=== PATIENT | female | born 1995 | race Caucasian/White ===

== ENCOUNTER 2017-05-26 17:54 | Emergency (ER) | payer MEDICAID, OTHER ==
[~2017-05-26] VITALS: Ht 154.9 cm; Wt 59.0 kg
[~2017-05-26 17:54] MED LIST: KEFLEX500 MG ORAL; NKM; ZOFRAN4 MG ORAL
[2017-05-26 19:04] VITALS: BP 98/69
[2017-05-26 19:17] LABS: BASOPHILS % (AUTO) 0.6 % (0.0-2.0); LYMPHOCYTES % (AUTO) 9.8 % (20.0-45.0); MEAN CORPUSCULAR HEMOGLOBIN 31.6 PG (27.0-31.0); MEAN CORPUSCULAR HGB CONC 35.2 G/DL (32.0-36.0); MEAN CORPUSCULAR VOLUME 90 FL (80-99); MEAN PLATELET VOLUME 7.3 FL (6.5-10.1); MONOCYTES % (AUTO) 6.5 % (1.0-10.0); NEUTROPHILS % (AUTO) 83.1 % (45.0-75.0); PLATELET COUNT 262 K/UL (150-450); RED BLOOD COUNT 4.34 M/UL (4.20-5.40); RED CELL DISTRIBUTION WIDTH 11.7 % (11.6-14.8); WHITE BLOOD COUNT 17.9 K/UL (4.8-10.8)
[2017-05-26 19:27] LABS: ALANINE AMINOTRANSFERASE 7 U/L (3-33); ANION GAP 14 (5-15); ASPARTATE AMINO TRANSFERASE 11 U/L (5-40); CALCIUM 9.5 mg/dL (8.6-10.2); CARBON DIOXIDE 26 mEQ/L (20-30); CHLORIDE 93 mEQ/L (98-107); CREATININE 0.8 mg/dL (0.5-0.9); GLOMERULAR FILTRATION RATE > 60 mL/min (>60); HEMOLYSIS 3; LIPASE 13 U/L (< 60); POTASSIUM 3.5 mEQ/L (3.4-4.9); SODIUM 133 mEQ/L (135-145); TOTAL PROTEIN 8.4 g/dL (6.6-8.7)
[2017-05-26 19:28] LABS: APPEARANCE,URINE SLIGHTLY CLOUDY; KETONES,URINE 2+ (NEGATIVE); LEUKOCYTE ESTERASE ,URINE 2+ (NEGATIVE); NITRITE,URINE NEGATIVE (NEGATIVE); PH,URINE 6.5 (4.5-8.0); PROTEIN,URINE 2+ (NEGATIVE); UROBILINOGEN,URINE 8 MG/DL (0.0-1.0)
[2017-05-26 19:29] LABS: INR 1.1 (0.9-1.1); PROTHROMBIN TIME 11.4 SEC (9.30-11.50)
[2017-05-26 19:37] LABS: BACTERIA,URINE FEW /HPF; ICTOTEST NEGATIVE; SQUAMOUS EPITHELIAL CELL,UR FEW /LPF (NONE/OCC)
[2017-05-26] MEDS ORDERED: Acetaminophen 500mg (ES) tab ORAL ONE (19:45)
[2017-05-26] MEDS ORDERED: Cephalexin 500mg cap ORAL ONE (20:45)
[2017-05-26] MEDS ORDERED: Bactrim DS (160mg/800mg) tab ORAL ONE (20:45)
[2017-05-26] MEDS ORDERED: BACTRIM DS TAB1 EAC1 ORAL (20:47)
[2017-05-26] MEDS ORDERED: IBUPROFEN600 MG ORAL (20:47)
[2017-05-26] MEDS ORDERED: CEPHALEXIN500 MG ORAL (20:47)
[2017-05-26 20:57] VITALS: BP 97/61
[2017-05-26 20:58] VITALS: BP 98/69
--- NOTE | 2017-05-27 09:35 | Diagnostic Imaging Report ---
Indication: Abdominal pain. Fever vomiting Technique: Continuous helical transaxial imaging of the abdomen and pelvis was obtained from the lung bases to the pubic symphysis during intravenous contrast administration. Coronal 2-D reformats were also obtained. Study obtained in a Siemens sensation [address] Total Dose length Product (DLP): [address] Dose Index Volume (CTDIvol): 2.15, 14.12 mGy Comparison: None Findings: Lung bases are clear. There are fluid-filled slightly distended loops of small bowel throughout the abdomen. 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 There is no abscess or free fluid. The bladder is relatively nondistended. Uterus is noted. The appendix is air-filled and normal in caliber. The kidneys, liver and spleen, pancreas and gallbladder are unremarkable. No adrenal mass seen. There is ill-defined subcutaneous edema noted in the left side posterior to the iliac region of undetermined etiology. This could be due to a contusion injury. This could be inflammatory. There is no abscess or fluid collection identified. Please correlate clinically. Impression: Ileus/enteritis suspected. Normal appendix. Subcutaneous edema in the lower left posterior lateral flank of unknown etiology. Please correlate clinically. The CT scanner at [facility] is accredited by the [employer] and the scans are performed using dose optimization techniques as appropriate to a performed exam including Automatic Exposure control.
--- NOTE | 2017-05-27 12:10 | Emergency Room Report ---
History of Present Illness General Chief Complaint: Vomiting Source: Patient Present Illness [facility] The patient is a 22 yo F presenting for multiple complaints including N, V, fever, and rash. She first noticed rash 5 days prior on the L hip which has been growing in size. She also noticed a white discharge from the area 2 days prior. Fever, chills, N, and V began yesterday. She denies any known sick contacts or recent travel. Pain is an 8/10 of the L hip/buttock. Does not radiate. Worse with touch. She denies diarrhea, BREWSTER, dizziness, SOB, CP, dysuria Allergies: Coded Allergies: No Known Allergies (Unverified , 03/24/14) Patient History Past Medical History: see triage record Pertinent Family History: none Last Menstrual Period: 05/26/17 Now: No Reviewed Nursing Documentation: PMH: Agreed, PSxH: Agreed Nursing Documentation-PMH Past Medical History: No Stated History Review of Systems All Other Systems: negative except mentioned in HPI Physical Exam Vital Signs Date Time Temp Pulse Resp B/P (MAP) Pulse Ox O2 Delivery O2 Flow Rate FiO2 05/26/17 18:07 100.2 125 15 96/66 95 Room Air Sp02 EP Interpretation: reviewed, normal General Appearance: no apparent distress, alert, GCS 15, non-toxic Head: normocephalic, atraumatic Eyes: bilateral eye normal inspection, bilateral eye PERRL ENT: hearing grossly normal, normal pharynx, no angioedema, normal voice Neck: full range of motion, supple/symm/no masses Respiratory: chest non-tender, lungs clear, normal breath sounds, no wheezing, speaking full sentences Cardiovascular #1: regular rate, rhythm, no edema, no murmur, no rub Gastrointestinal: normal bowel sounds, soft, non-distended, no guarding, no rebound, tenderness - TTP over epigastric region Genitourinary: normal inspection, no CVA tenderness Musculoskeletal: back normal, gait/station normal, normal range of motion, non- tender Neurologic: alert, oriented x3, responsive, motor strength/tone normal, sensory intact, speech normal Psychiatric: judgement/insight normal, memory normal, mood/affect normal, no suicidal/homicidal ideation Skin: other - erythema, edema, TTP, and increased temperature to L hip/ buttock. Central scab noted. No fluctuance. Approximately 10cm in diameter Medical Decision Making PA Attestation Dr. Feng is my supervising physician. Patient management was discussed with my supervising physician Diagnostic Impression: Primary Impression: Cellulitis Qualified Codes: L03.317 - Cellulitis of buttock ER Course The patient is a 22 yo F presenting for multiple complaints including N, V, fever, and rash. Ddx considered include but not limited to insect bite, contact dermatitis, abscess, cellulitis, gastroenteritis, appendicitis, among others PE: Pt is febrile. NAD Abd is soft. TTP over epigastric region only. No RLQ tenderness. Normal BS. Non distended. erythema, edema, TTP, and increased temperature to L hip/buttock. Central scab noted. No fluctuance. Approximately 10cm in diameter CT: Ileus/enteritis suspected. Normal appendix. Subcutaneous edema in the lower left posterior lateral flank of unknown etiology. Please correlate clinically. The patient was given IV fluids, zofran, motrin, and tylenol and is feeling better. She will be treated for cellulitis and most likely has gastroenteritis as well. She will take in plenty of fluids. She was offered admission but would rather try outpatient treatment. I have given her indications to return including continued/worsening pain, fever , or for any other reason. Laboratory Tests Test 05/26/17 18:40 05/26/17 18:50 Urine Color Brown Urine Appearance Slightly cloudy Urine pH 6.5 (4.5-8.0) Urine Specific [place] 1.010 (1.005-1.035) Urine Protein 2+ (NEGATIVE) H Urine Glucose (UA) Negative (NEGATIVE) Urine Ketones 2+ (NEGATIVE) H Urine Occult Blood 5+ (NEGATIVE) H Urine Nitrite Negative (NEGATIVE) Urine Bilirubin 1+ (NEGATIVE) H Urine Ictotest Negative Urine Urobilinogen 8 MG/DL (0.0-1.0) H Urine Leukocyte Esterase 2+ (NEGATIVE) H Urine RBC 5-10 /HPF (0 - 2) H Urine WBC 2-4 /HPF (0 - 2) Urine Squamous Epithelial Cells Few /LPF (NONE/OCC) Urine Bacteria Few /HPF (NONE) Urine HCG, Qualitative Negative Urine Opiates Screen Negative (NEGATIVE) Urine Barbiturates Screen Negative (NEGATIVE) Phencyclidine (PCP) Screen Negative (NEGATIVE) Urine Amphetamines Screen Positive (NEGATIVE) H Urine Benzodiazepines Screen Negative (NEGATIVE) Urine Cocaine Screen Negative (NEGATIVE) Urine Marijuana (THC) Screen Positive (NEGATIVE) H White Blood Count 17.9 K/UL (4.8-10.8) H Red Blood Count 4.34 M/UL (4.20-5.40) Hemoglobin 13.7 G/DL (12.0-16.0) Hematocrit 39.0 % (37.0-47.0) Mean Corpuscular Volume 90 FL (80-99) Mean Corpuscular Hemoglobin 31.6 PG (27.0-31.0) H Mean Corpuscular Hemoglobin Concent 35.2 G/DL (32.0-36.0) Red Cell Distribution Width 11.7 % (11.6-14.8) Platelet Count 262 K/UL (150-450) Mean Platelet Volume 7.3 FL (6.5-10.1) Neutrophils (%) (Auto) 83.1 % (45.0-75.0) H Lymphocytes (%) (Auto) 9.8 % (20.0-45.0) L Monocytes (%) (Auto) 6.5 % (1.0-10.0) Eosinophils (%) (Auto) 0.0 % (0.0-3.0) Basophils (%) (Auto) 0.6 % (0.0-2.0) Prothrombin Time 11.4 SEC (9.30-11.50) Prothrombin Time INR 1.1 (0.9-1.1) PTT 30 SEC (23-33) Sodium Level 133 mEQ/L (135-145) L Potassium Level 3.5 mEQ/L (3.4-4.9) Chloride Level 93 mEQ/L (98-107) L Carbon Dioxide Level 26 mEQ/L (20-30) Anion Gap 14 (5-15) Blood Urea Nitrogen 9 mg/dL (7-23) Creatinine 0.8 mg/dL (0.5-0.9) Estimate Glomerular Filtration Rate > 60 mL/min (>60) Glucose Level 125 mg/dL (74-106) H Calcium Level 9.5 mg/dL (8.6-10.2) Total Bilirubin 0.5 mg/dL (0.0-1.2) Aspartate Amino Transferase (AST) 11 U/L (5-40) Alanine Aminotransferase (ALT) 7 U/L (3-33) Alkaline Phosphatase 85 U/L (35-104) Total Protein 8.4 g/dL (6.6-8.7) Albumin 4.3 g/dL (3.5-5.2) Globulin 4.1 g/dL Albumin/Globulin Ratio 1.0 (1.0-2.7) Lipase 13 U/L (< 60) Lab Results Impression CBC: leukocytosis with L shift CMP unremarkable UA: No signs of infection UDS + amphetamines and THC CT/MRI/US Diagnostic Results CT/MRI/US Diagnostic Results : Imaging Test Ordered: CT abd/pelvis Impression Ileus/enteritis suspected. Normal appendix. Subcutaneous edema in the lower left posterior lateral flank of unknown etiology. Please correlate clinically. Last Vital Signs Date Time Temp Pulse Resp B/P (MAP) Pulse Ox O2 Delivery O2 Flow Rate FiO2 05/26/17 20:58 101.4 80 15 98/69 95 Room Air Status: improved Disposition: HOME, SELF-CARE Condition: Improved Scripts Trimethoprim/Sulfamethoxazole 160/800* (BACTRIM DS TABLET*) 1 Each Tablet 1 TAB ORAL TWICE A DAY, #14 TAB Prov: DOMINICK ROSALES P.A. 05/26/17 Cephalexin* (KEFLEX*) 500 Mg Capsule 500 MG ORAL EVERY 6 HOURS, #28 CAP Prov: JEANETTEANDOMINICK P.A. 05/26/17 Ibuprofen* (MOTRIN*) 600 Mg Tablet 600 MG ORAL Q8H Y for For Pain, #30 TAB 0 Refills Prov: DOMINICK ROSALES P.A. 05/26/17 Patient Instructions: Cellulitis Additional Instructions: I discussed my findings with the patient. All questions and concerns have been answered. Treatment and medication compliance have been addressed. I advised the patient that they need to follow up with PMD in 3-5 days. Return to ED if symptoms worsen, new symptoms arise, or if needed for any reason. Patient verbalized understanding of discharge instructions. DOMINICK ROSALES May 27, 2017 12:10
== END 2017-05-26 21:00 | disposition home or self-care (01) ==
LOC: EMR 19:05
DX: L03.317 Cellulitis of buttock (principal); R50.9 Fever, unspecified; D72.829 Elevated white blood cell count, unspecified
CPT/HCPCS: 36415; 74177; 80053; 80300; 81003; 81025; 83690; 85025; 85610; 85730; 96361; 96374; 99284; J2405

== ENCOUNTER 2017-11-21 22:00 | Emergency (ER) | payer MEDICAID ==
[~2017-11-21] VITALS: Ht 152.4 cm; Wt 54.4 kg
[~2017-11-21 22:00] MED LIST changes: +BACTRIM DS TAB1 EAC1 ORAL; +CEPHALEXIN500 MG ORAL; +IBUPROFEN600 MG ORAL
[2017-11-21] MEDS ORDERED: NKM (22:12)
[2017-11-21 22:30] VITALS: BP 116/78
[2017-11-21] MEDS ORDERED: Dicyclomine HCl 10mg/5ml oral soln ORAL ONE (22:30)
[2017-11-21] MEDS ORDERED: Mylanta II UD 30ml ORAL ONE (22:30)
[2017-11-21] MEDS ORDERED: Lidocaine 2% Visc 15ml soln ORAL ONE (22:30)
[2017-11-21 22:43] LABS: APPEARANCE,URINE CLEAR; BILIRUBIN, URINE NEGATIVE (NEGATIVE); COLOR,URINE PALE YELLOW; GLUCOSE, URINE (UA) NEGATIVE (NEGATIVE); KETONES,URINE NEGATIVE (NEGATIVE); LEUKOCYTE ESTERASE ,URINE NEGATIVE (NEGATIVE); NITRITE,URINE NEGATIVE (NEGATIVE); PH,URINE 5 (4.5-8.0); PROTEIN,URINE NEGATIVE (NEGATIVE); UROBILINOGEN,URINE NORMAL MG/DL (0.0-1.0)
[2017-11-21 23:21] LABS: ANION GAP 12 mmol/L (5-15); BLOOD UREA NITROGEN 10 mg/dL (7-18); CALCIUM 8.8 MG/DL (8.5-10.1); CARBON DIOXIDE 25 MMOL/L (21-32); CHLORIDE 101 MMOL/L (98-107); CREATININE 0.7 MG/DL (0.55-1.30); EOSINOPHILS % (AUTO) 0.6 % (0.0-3.0); HEMATOCRIT 39.5 % (37.0-47.0); HEMOGLOBIN 13.6 G/DL (12.0-16.0); LYMPHOCYTES % (AUTO) 22.7 % (20.0-45.0); MEAN CORPUSCULAR VOLUME 84 FL (80-99); MONOCYTES % (AUTO) 7.4 % (1.0-10.0); NEUTROPHILS % (AUTO) 68.3 % (45.0-75.0); PLATELET COUNT 311 K/UL (150-450); POTASSIUM 3.7 MMOL/L (3.5-5.1); RED BLOOD COUNT 4.69 M/UL (4.20-5.40); RED CELL DISTRIBUTION WIDTH 13.5 % (11.6-14.8); SODIUM 138 MMOL/L (136-145)
[2017-11-21 23:26] LABS: ALANINE AMINOTRANSFERASE 20 U/L (12-78); ALBUMIN/GLOBULIN RATIO 0.8 (1.0-2.7); ALKALINE PHOSPHATASE 86 U/L (46-116); ASPARTATE AMINO TRANSFERASE 29 U/L (15-37); BILIRUBIN,TOTAL 0.3 MG/DL (0.2-1.0)
[2017-11-21 23:30] VITALS: BP 118/73
[2017-11-22] MEDS ORDERED: ZOFRAN ODT4 MG ORAL (00:10)
[2017-11-22] MEDS ORDERED: RANITIDINE HCL150 MG ORAL (00:10)
[2017-11-22 00:28] VITALS: BP 118/73
--- NOTE | 2017-11-22 00:42 | Emergency Room Report ---
History of Present Illness General Chief Complaint: Abdominal Pain Source: Patient Present Illness HPI 22-year-old female presents ED for evaluation. Patient complaining of abdominal pain with nausea and vomiting for one month. Worse today. It is epigastric, sharp, 8/10, radiating through her upper chest. Denies chest pain or shortness of breath. Denies diarrhea. No other aggravating or relieving factors. Denies any other associated symptoms Allergies: Coded Allergies: No Known Allergies (Unverified , 03/24/14) Patient History Past Medical History: none Past Surgical History: none Pertinent Family History: none Social History: Denies: smoking, alcohol use, drug use Last Menstrual Period: November Now: No Immunizations: UTD Reviewed Nursing Documentation: PMH: Agreed, PSxH: Agreed Nursing Documentation-PMH Past Medical History: No Stated History Review of Systems All Other Systems: negative except mentioned in HPI Physical Exam Vital Signs Date Time Temp Pulse Resp B/P (MAP) Pulse Ox O2 Delivery O2 Flow Rate FiO2 11/21/17 22:07 98.7 99 18 109/71 100 Room Air 98.8 Sp02 EP Interpretation: reviewed, normal General Appearance: no apparent distress, alert, GCS 15, non-toxic Head: normocephalic, atraumatic Eyes: bilateral eye normal inspection, bilateral eye PERRL ENT: hearing grossly normal, normal pharynx, no angioedema, normal voice Neck: full range of motion, supple/symm/no masses Respiratory: chest non-tender, lungs clear, normal breath sounds, speaking full sentences Cardiovascular #1: regular rate, rhythm, no edema Cardiovascular #2: 2+ carotid (R), 2+ carotid (L), 2+ radial (R), 2+ radial (L) , 2+ dorsalis pedis (R), 2+ dorsalis pedis (L) Gastrointestinal: normal bowel sounds, soft, non-distended, no guarding, no rebound, tenderness - epigastric Rectal: deferred Genitourinary: normal inspection, no CVA tenderness Musculoskeletal: back normal, gait/station normal, normal range of motion, non- tender Neurologic: alert, oriented x3, responsive, motor strength/tone normal, sensory intact, speech normal Psychiatric: judgement/insight normal, memory normal, mood/affect normal, no suicidal/homicidal ideation Reflexes: 3+ bicep (R), 3+ bicep (L), 3+ tricep (R), 3+ tricep (L), 3+ knee (R) , 3+ knee (L) Skin: normal color, no rash, warm/dry, well hydrated Lymphatic: no adenopathy Medical Decision Making Diagnostic Impression: Primary Impression: Gastritis Qualified Codes: K29.00 - Acute gastritis without bleeding ER Course Hospital Course 22-year-old F presents to ED with epigastric pain with N/V. differential diagnosis: gastritis, SBO, cholecystits Clinical course Patient placed on stretcher. On monitor tech. After initial history and physical I ordered labs, IV fluids, Zofran, pepcid and GI cocktail Labs - noted leukocytosis, no electrolyte abnormalities, LFTs normal, UA unremarkable Upon reassessment, patient states pain has improved. findings consistent with gastritis Discussed findings with the patient. Stable for discharge. Recommend close follow-up with PMD I feel this is a highly complex case requiring extensive working including EKG/ Rhythm strip, Xray/CT/US, Blood/urine lab work, repeat exams while in ED, and administration of strong opiates/narcotics for pain control, admission to hospital or close patient follow up. Diagnosis - gastritis Stable and discharged to home with prescriptions for Zantac, zofran. Followup with PMD. Return to ED if symptoms recur or worsen Labs Test 11/21/17 22:15 11/21/17 22:35 Urine Color Pale yellow Urine Appearance Clear Urine pH 5 (4.5-8.0) Urine Specific [place] 1.010 (1.005-1.035) Urine Protein Negative (NEGATIVE) Urine Glucose (UA) Negative (NEGATIVE) Urine Ketones Negative (NEGATIVE) Urine Occult Blood 1+ (NEGATIVE) Urine Nitrite Negative (NEGATIVE) Urine Bilirubin Negative (NEGATIVE) Urine Urobilinogen Normal MG/DL (0.0-1.0) Urine Leukocyte Esterase Negative (NEGATIVE) Urine RBC 2-4 /HPF (0 - 2) Urine WBC 0-2 /HPF (0 - 2) Urine Squamous Epithelial Cells Few /LPF (NONE/OCC) Urine Bacteria Few /HPF (NONE) Urine HCG, Qualitative Negative White Blood Count 15.0 K/UL (4.8-10.8) Red Blood Count 4.69 M/UL (4.20-5.40) Hemoglobin 13.6 G/DL (12.0-16.0) Hematocrit 39.5 % (37.0-47.0) Mean Corpuscular Volume 84 FL (80-99) Mean Corpuscular Hemoglobin 28.9 PG (27.0-31.0) Mean Corpuscular Hemoglobin Concent 34.3 G/DL (32.0-36.0) Red Cell Distribution Width 13.5 % (11.6-14.8) Platelet Count 311 K/UL (150-450) Mean Platelet Volume 7.1 FL (6.5-10.1) Neutrophils (%) (Auto) 68.3 % (45.0-75.0) Lymphocytes (%) (Auto) 22.7 % (20.0-45.0) Monocytes (%) (Auto) 7.4 % (1.0-10.0) Eosinophils (%) (Auto) 0.6 % (0.0-3.0) Basophils (%) (Auto) 1.0 % (0.0-2.0) Sodium Level 138 MMOL/L (136-145) Potassium Level 3.7 MMOL/L (3.5-5.1) Chloride Level 101 MMOL/L (98-107) Carbon Dioxide Level 25 MMOL/L (21-32) Anion Gap 12 mmol/L (5-15) Blood Urea Nitrogen 10 mg/dL (7-18) Creatinine 0.7 MG/DL (0.55-1.30) Estimat Glomerular Filtration Rate > 60 mL/min (>60) Glucose Level 86 MG/DL (74-106) Calcium Level 8.8 MG/DL (8.5-10.1) Total Bilirubin 0.3 MG/DL (0.2-1.0) Aspartate Amino Transf (AST/SGOT) 29 U/L (15-37) Alanine Aminotransferase (ALT/SGPT) 20 U/L (12-78) Alkaline Phosphatase 86 U/L (46-116) Total Protein 8.8 G/DL (6.4-8.2) Albumin 4.0 G/DL (3.4-5.0) Globulin 4.8 g/dL Albumin/Globulin Ratio 0.8 (1.0-2.7) Lipase 96 U/L (73-393) Last Vital Signs Date Time Temp Pulse Resp B/P (MAP) Pulse Ox O2 Delivery O2 Flow Rate FiO2 11/21/17 23:30 98.5 90 17 118/73 99 Room Air 98.5 Status: improved Disposition: HOME, SELF-CARE Condition: Stable Scripts Ranitidine Hcl* (ZANTAC*) 150 Mg Tablet 150 MG ORAL TWICE A DAY, #30 TAB Prov: LAKE NEFF M.D. 11/22/17 Ondansetron Odt* (ZOFRAN ODT*) 4 Mg Tab.rapdis 4 MG ORAL Q6H Y for Nausea & Vomiting, #30 TAB 0 Refills Prov: LAKE NEFF M.D. 11/22/17 Patient Instructions: Gastritis, Adult, [id number] LAKE NEFF M.D. Nov 22, 2017 00:42
== END 2017-11-22 00:28 | disposition home or self-care (01) ==
LOC: EMR 22:55
DX: K29.70 Gastritis, unspecified, without bleeding (principal)
CPT/HCPCS: 36415; 80053; 81003; 81025; 83690; 85025; 96361; 96374; 96375; 99284; J2405; S0028

== ENCOUNTER 2018-11-23 14:02 | Emergency (ER) | payer MEDICAID ==
[~2018-11-23] VITALS: Ht 152.4 cm; Wt 59.0 kg
[~2018-11-23 14:02] MED LIST changes: +RANITIDINE HCL150 MG ORAL; +ZOFRAN ODT4 MG ORAL
--- NOTE | 2018-11-23 14:54 | NUR ---
ED Nurse Note:urine sent to labs, pt. went to CT scan
[2018-11-23 15:04] VITALS: BP 111/74
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
[2018-11-23] MEDS ORDERED: TYLENOL EXTRA500 MG ORAL (16:20)
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
[2018-11-23 16:23] VITALS: BP 111/74
--- NOTE | 2018-11-23 16:25 | NUR ---
ER DISCHARGE NOTE: Patient is cleared to be discharged per ERMD, pt is aox4, on room air, with stable vital signs. pt was given dc and prescription instructions, pt was able to verbalize understanding, pt is able to ambulate with steady gait. pt took all belongings.
== END 2018-11-23 16:34 | disposition home or self-care (01) ==
LOC: EMR 15:10
DX: S00.83XA Contusion of other part of head, initial encounter (principal); S06.9X9A Unspecified intracranial injury with loss of consciousness of unspecified duration, initial encounter; X58.XXXA Exposure to other specified factors, initial encounter; Y92.89 Other specified places as the place of occurrence of the external cause
CPT/HCPCS: 70450; 70486; 80307; 81025; 99284

== ENCOUNTER 2019-02-21 17:40 | Emergency (ER) | payer MEDICAID ==
[~2019-02-21] VITALS: Ht 152.4 cm; Wt 61.2 kg
[~2019-02-21 17:40] MED LIST changes: +TYLENOL EXTRA500 MG ORAL
[2019-02-21 17:49] VITALS: BP 116/72
--- NOTE | 2019-02-21 17:55 | NUR ---
ED Nurse Note: pt walked in to ER c/o N/V and abdominal pain for 3 days. pt aao x4 and ambulatory. skin clean and intact. no N/V since she got to ER. pt was able to provide urine sample. pt is on gown and library monitor.
[2019-02-21] MEDS ORDERED: Dicyclomine HCl 10mg/5ml oral soln ORAL ONE (18:00)
[2019-02-21] MEDS ORDERED: Lidocaine 2% Visc 15ml soln ORAL ONE (18:00)
--- NOTE | 2019-02-21 18:06 | Emergency Room Report ---
History of Present Illness General Chief Complaint: Abdominal Pain Source: Patient Present Illness HPI Patient is a 23-year-old female presents after increased epigastric pain. Patient had previously had CT imaging to the abdomen pelvis. She had similar symptoms in the past and was previously diagnosed with gastritis. Patient had not been currently taking any medications. She reported having recent worsening of symptoms after drinking alcohol on Friday. She denies any hematemesis or bloody stools. She denies being . Patient states that she had been vomiting multiple times. She denies any diarrhea or bloody stools. Pain was noted to be worsened after eating especially with spicy food. Patient denies any radiation to her back. Allergies: Coded Allergies: No Known Allergies (Unverified , 03/24/14) Patient History Past Medical History: see triage record Last Menstrual Period: 01/26/19 Reviewed Nursing Documentation: PMH: Agreed; PSxH: Agreed Nursing Documentation-PM Past Medical History: No Stated History Review of Systems All Other Systems: negative except mentioned in HPI Physical Exam Vital Signs Date Time Temp Pulse Resp B/P (MAP) Pulse Ox O2 Delivery O2 Flow Rate FiO2 02/21/19 17:45 98.1 65 19 116/72 (87) 99 Room Air Sp02 EP Interpretation: reviewed, normal General Appearance: normal inspection, well appearing, no apparent distress, alert, GCS 15, non-toxic Head: atraumatic ENT: normal ENT inspection, hearing grossly normal, normal voice Neck: normal inspection, full range of motion, supple, no bony tend Respiratory: normal inspection, lungs clear, normal breath sounds, no respiratory distress, no retraction, no wheezing Cardiovascular #1: regular rate, rhythm, no edema Gastrointestinal: normal inspection, normal bowel sounds, non tender, soft, no guarding, no hernia Genitourinary: no CVA tenderness Musculoskeletal: normal inspection, back normal, normal range of motion Neurologic: normal inspection, alert, oriented x3, responsive, 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 Differential diagnoses included cholecystitis, ischemic bowel, appendicitis, perforated viscus, abdominal aortic aneurysm, inferior myocardial infarction, viral gastroenteritis among others. Abdominal ultrasound showed no evidence of aortic aneurysm or gallbladder pathology. Patient was given a GI cocktail with improvement in her symptoms. test was negative. Patient appears to be stable for outpatient management and follow-up. Patient advised to follow-up with her primary care physician for recheck and gastroenterology referral. She was advised alcohol cessation and dietary modification. She is advised to return if she felt worse. Last Vital Signs Date Time Temp Pulse Resp B/P (MAP) Pulse Ox O2 Delivery O2 Flow Rate FiO2 02/21/19 17:49 65 19 Room Air 02/21/19 17:49 98.1 116/72 99 Status: improved Disposition: HOME, SELF-CARE Condition: Stable Scripts Ondansetron (Zofran) 4 Mg Tablet 4 MG ORAL Q6H PRN for Nausea & Vomiting, #30 TAB 0 Refills Prov: Ebenezer Brown MD 02/21/19 Famotidine (PEPCID AC) 20 Mg Tablet 20 MG PO DAILY, #30 TAB Prov: Ebenezer Brown MD 02/21/19 Referrals: [facility],REFERRING (PCP) Ebenezer Brown MD Feb 21, 2019 18:06
--- NOTE | 2019-02-21 18:46 | NUR ---
ED Nurse Note: US at bedside.
--- NOTE | 2019-02-21 19:05 | NUR ---
HAND-OFF: Report given to Stefano Wong RN. no orders to carry at this moment.
[2019-02-21] MEDS ORDERED: PEPCID AC20 M2 PO (19:17)
[2019-02-21] MEDS ORDERED: ZOFRAN4 MG ORAL (19:17)
[2019-02-21 19:20] VITALS: BP 124/68
--- NOTE | 2019-02-22 09:39 | Diagnostic Imaging Report ---
Indication: Abdominal pain Technique: Grayscale and duplex Doppler imaging of the abdomen performed. Comparison: None Findings: The liver is unremarkable. Doppler exam the portal vein was not performed. There is no biliary ductal dilitation identified. The CBD measures 2 mm. The gallbladder is unremarkable. There are no gallstones or wall thickening identified. Sonographic rodriguez's sign was negative per technologist. The demonstrated part of the pancreas, aorta and IVC show no abnormalities. Both kidneys appear unremarkable. There is no hydronephrosis. The spleen is normal in size, contour and echogenicity. There is no free fluid identified. IMPRESSION: No acute findings. Limited evaluation.
== END 2019-02-21 19:20 | disposition home or self-care (01) ==
LOC: EMR 17:53
DX: K29.70 Gastritis, unspecified, without bleeding (principal)
CPT/HCPCS: 76700; 81025; 99283

== ENCOUNTER 2019-04-14 17:05 | Emergency (ER) | payer SELFPAY ==
[~2019-04-14] VITALS: Ht 152.4 cm; Wt 58.1 kg
[~2019-04-14 17:05] MED LIST changes: +PEPCID AC20 M2 PO
[2019-04-14 17:37] VITALS: BP 99/63
[2019-04-14 17:41] LABS: APPEARANCE,URINE CLOUDY; BILIRUBIN, URINE NEGATIVE (NEGATIVE); COLOR,URINE PALE YELLOW; GLUCOSE, URINE (UA) NEGATIVE (NEGATIVE); KETONES,URINE NEGATIVE (NEGATIVE); LEUKOCYTE ESTERASE ,URINE NEGATIVE (NEGATIVE); NITRITE,URINE NEGATIVE (NEGATIVE); PH,URINE 7 (4.5-8.0); PROTEIN,URINE NEGATIVE (NEGATIVE); UROBILINOGEN,URINE NORMAL MG/DL (0.0-1.0)
--- NOTE | 2019-04-14 17:54 | Emergency Room Report ---
History of Present Illness General Chief Complaint: Abdominal Pain Source: Patient Present Illness HPI 23-year-old female with history of gastritis here complaining of epigastric pain and acid reflux as well as nausea and one bout of nonbloody emesis that started 2 days ago after eating spicy and acidic food. Patient also smokes some cigarettes and has been drinking alcohol. Patient used to take cimetidine and Zofran however ran out of her medication. Denies any diarrhea or constipation. Denies fever and chills, urinary symptoms. Rating her pain 5 out of 10 without radiation has not taken medication for symptom relief. 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 Is sitting or comfortably with stable vital signs. Allergies: Coded Allergies: No Known Allergies (Unverified , 03/24/14) Patient History Past Medical History: see triage record Past Surgical History: unable to obtain Pertinent Family History: none Last Menstrual Period: 03/2019 Now: No Immunizations: UTD Reviewed Nursing Documentation: PMH: Agreed; PSxH: Agreed Nursing Documentation-PMH Past Medical History: No Stated History Review of Systems All Other Systems: negative except mentioned in HPI Physical Exam Vital Signs Date Time Temp Pulse Resp B/P (MAP) Pulse Ox O2 Delivery O2 Flow Rate FiO2 04/14/19 17:13 98.4 68 21 99/63 (75) 97 Room Air Sp02 EP Interpretation: reviewed, normal General Appearance: normal inspection, well appearing, no apparent distress Head: normocephalic, atraumatic Eyes: bilateral eye normal inspection, bilateral eye PERRL ENT: normal ENT inspection, normal pharynx Neck: normal inspection, full range of motion, supple Respiratory: normal inspection, chest non-tender, lungs clear, no wheezing Cardiovascular #1: normal inspection, no edema, no murmur Gastrointestinal: normal inspection, non tender, soft, no mass, no organomegaly , no peritonitis, no guarding Genitourinary: no CVA tenderness Musculoskeletal: back normal Neurologic: normal inspection, alert, oriented x3 Psychiatric: normal inspection, memory normal Skin: no rash Lymphatic: normal inspection, no adenopathy Medical Decision Making PA Attestation All diagnoses and treatment plans were reviewed and discussed with my supervising physician Dr. Collins Diagnostic Impression: Primary Impression: Gastritis ER Course 23-year-old female with history of gastritis here complaining of epigastric pain and acid reflux as well as nausea and one bout of nonbloody emesis that started 2 days ago after eating spicy and acidic food. Patient also smokes some cigarettes and has been drinking alcohol. Patient used to take cimetidine and Zofran however ran out of her medication. Denies any diarrhea or constipation. Denies fever and chills, urinary symptoms. Rating her pain 5 out of 10 without radiation has not taken medication for symptom relief. 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 Is sitting or comfortably with stable vital signs. Ddx considered but are not limited to: Cholecystitis, gastritis, gastroenteritis , UTI, pyelonephritis Vital signs: are WNL, pt. is afebrile H&PE are most consistent with: Gastritis ORDERS: UA, urine , omeprazole, Zofran ED INTERVENTIONS: Tylenol DISCHARGE: At this time pt. is stable for d/c to home. Will provide printed patient care instructions, and any necessary prescriptions. Care plan and follow up instructions have been discussed with the patient prior to discharge. Patient was recently here with similar symptoms abdominal ultrasound was done and was negative patient to follow-up with continuous miner operator helper and return to emergency room with worsening symptoms Last Vital Signs Date Time Temp Pulse Resp B/P (MAP) Pulse Ox O2 Delivery O2 Flow Rate FiO2 04/14/19 17:40 68 21 Room Air 04/14/19 17:37 98.4 99/63 97 Disposition: HOME, SELF-CARE Condition: Stable Scripts Ondansetron (Zofran) 4 Mg Tablet 4 MG ORAL Q6H PRN for Nausea & Vomiting, #12 TAB Prov: Dhruv Faustin 04/14/19 Omeprazole (OMEPRAZOLE) 20 Mg Tablet. 20 MG ORAL DAILY, #30 TAB Prov: Dhruv Faustin 04/14/19 Referrals: [facility]REFERRING (PCP) Patient Instructions: Gastritis, Adult Dhruv Faustin Apr 14, 2019 17:54
[2019-04-14] MEDS ORDERED: ZOFRAN4 M1 ORAL (17:55)
[2019-04-14] MEDS ORDERED: OMEPRAZOLE20 M3 ORAL (17:55)
[2019-04-14 18:14] VITALS: BP 102/65
[2019-04-14] MEDS ORDERED: Acetaminophen 500mg (ES) tab ORAL ONE (18:15)
== END 2019-04-14 18:13 | disposition home or self-care (01) ==
LOC: EMR 17:43
DX: K29.70 Gastritis, unspecified, without bleeding (principal); K21.9 Gastro-esophageal reflux disease without esophagitis
CPT/HCPCS: 81001; 81025; 87086; 99283

== ENCOUNTER 2019-05-24 04:54 | Emergency (ER) | payer MEDICAID, OTHER ==
[~2019-05-24] VITALS: Ht 152.4 cm; Wt 59.0 kg
[~2019-05-24 04:54] MED LIST changes: +OMEPRAZOLE20 M3 ORAL; +ZOFRAN4 M1 ORAL
--- NOTE | 2019-05-24 05:03 | NUR ---
ED Nurse Note: Pt walked in c/o a bug bite on RT upper leg since 05/21. Pt stated reddeness is spreading with warmth and pain. 9/10 pain, worse when sitting. Pt is AO x 4times, VSS, on room air no distress. ERMD seen Pt at bedside.
[2019-05-24 05:04] VITALS: BP 142/68
--- NOTE | 2019-05-24 05:17 | Emergency Room Report ---
History of Present Illness General Chief Complaint: Skin Rash/Abscess Source: Patient Present Illness HPI Is a 24-year-old female with no past medical history. She presents with chief complaint of abscess to right thigh. Onset for last few days. Worse when she tried to pop it today. Pain is throbbing in itchy. Pain is 8 out of 10. Worse with palpation. Denies any other complaint. Allergies: Coded Allergies: No Known Allergies (Unverified , 03/24/14) Patient History Past Medical History: see triage record, old chart reviewed Past Surgical History: none Pertinent Family History: none Social History: Denies: smoking Last Menstrual Period: 04/2019 Now: No : 1 Para: 1 Immunizations: other Reviewed Nursing Documentation: PMH: Agreed; PSxH: Agreed Nursing Documentation-PMH Past Medical History: No Stated History Review of Systems Eye: Denies: eye pain, blurred vision ENT: Denies: ear pain, nose congestion, throat swelling Respiratory: Denies: cough, shortness of breath Cardiovascular: Denies: chest pain, palpitations Gastrointestinal: Denies: abdominal pain, diarrhea, nausea, vomiting Musculoskeletal: Denies: back pain, joint pain Skin: Reports: rash Neurological: Denies: headache, numbness Endocrine: Denies: increased thirst, increased urine Hematologic/Lymphatic: Denies: easy bruising All Other Systems: negative except mentioned in HPI Physical Exam Vital Signs Date Time Temp Pulse Resp B/P (MAP) Pulse Ox O2 Delivery O2 Flow Rate FiO2 05/24/19 04:55 98.2 100 18 117/80 (92) 97 Room Air Vitals normal Sp02 EP Interpretation: reviewed, normal General Appearance: well appearing, no apparent distress, alert Head: normocephalic, atraumatic Eyes: bilateral eye PERRL, bilateral eye EOMI ENT: hearing grossly normal, normal pharynx Neck: full range of motion, supple, no meningismus Respiratory: chest non-tender, lungs clear, normal breath sounds Cardiovascular #1: regular rate, rhythm, no murmur Gastrointestinal: normal bowel sounds, non tender, no mass, no organomegaly, no bruit, non-distended Musculoskeletal: back normal, gait/station normal, normal range of motion, other - Right lateral upper thigh: There is an indurated area of 3 cm with a central necrosis. There is surrounding erythema. tender to palpation. Psychiatric: mood/affect normal Procedures Incision and Drainage Incision and Drainage : Consent: Verbal Site: Rt thigh Blade Size: 11 I & D Procedure: betadine prep, sterile drapes applied, sterile dressing applied Wound Location: lower extremity Anesthesia: 1% Lidocaine Volume Anesthetic (ccs): 5 Patient Tolerated: Well Complications: None Medical Decision Making Diagnostic Impression: Primary Impression: Abscess ER Course Presents with an abscess to her thigh. Most likely MRSA since she had a before. No evidence of necrotizing fasciitis. No deep infection. Will discharge home. Last Vital Signs Date Time Temp Pulse Resp B/P (MAP) Pulse Ox O2 Delivery O2 Flow Rate FiO2 05/24/19 05:04 98.2 98 18 142/68 100 Room Air Status: improved Disposition: HOME, SELF-CARE Condition: Stable Scripts Mupirocin* (MUPIROCIN*) 22 Gm Oint...g. 1 APPLIC TOPIC THREE TIMES A DAY, #22 GM Prov: Ilan Lam MD 05/24/19 Ibuprofen* (MOTRIN*) 600 Mg Tablet 600 MG ORAL THREE TIMES A DAY, #30 TAB 0 Refills Prov: Ilan Lam MD 05/24/19 Trimethoprim/Sulfamethoxazole 160/800* (BACTRIM DS TABLET*) 1 Each Tablet 1 TAB ORAL Q12H, #14 TAB 0 Refills Prov: Ilan Lam MD 05/24/19 Patient Instructions: Abscess Additional Instructions: Keep wound clean. Clean with hydrogen peroxide first and then apply antibiotic ointment. Follow-up with your doctor in 7 days. Return if worse. Ilan Lam MD May 24, 2019 05:17
[2019-05-24] MEDS ORDERED: Bactrim-DS 1 tab ORAL ONE (05:30)
[2019-05-24] MEDS ORDERED: MUPIROCIN22 GM TOPIC (05:33)
[2019-05-24] MEDS ORDERED: IBUPROFEN600 MG ORAL (05:33)
[2019-05-24] MEDS ORDERED: BACTRIM DS TAB1 EAC1 ORAL (05:33)
[2019-05-24 05:34] VITALS: BP 142/68
--- NOTE | 2019-05-24 05:38 | NUR ---
ER DISCHARGE NOTE: Patient is cleared to be discharged per ERMD, pt is aox4, on room air, with stable vital signs. pt was given dc and prescription instructions, pt was able to verbalize understanding, pt id band removed without complications. pt is able to ambulate with steady gait with boyfriend. pt took all belongings.
== END 2019-05-24 05:39 | disposition home or self-care (01) ==
LOC: EMR 05:20
DX: L02.415 Cutaneous abscess of right lower limb (principal)
CPT/HCPCS: 10060; 99283; Z7502